=== PATIENT | male | born 1975 | race Caucasian/White ===

== ENCOUNTER 2021-02-16 20:40 | Emergency (ER) | payer OTHER ==
[~2021-02-16 20:40] MED LIST: PREDNISONE20 MG PO; VENTOLIN HFA 66.7 GM INH; VIBRAMYCIN 100100 MG PO
[2021-02-17] MEDS ORDERED: LODINE CAP 300300 MG PO (00:34)
== END 2021-02-17 00:40 | disposition left against medical advice (07) ==
LOC: ER1 20:40
DX: S80.02XA Contusion of left knee, initial encounter (principal); S80.01XA Contusion of right knee, initial encounter; S50.811A Abrasion of right forearm, initial encounter; F10.129 Alcohol abuse with intoxication, unspecified; Y90.8 Blood alcohol level of 240 mg/100 ml or more; F17.210 Nicotine dependence, cigarettes, uncomplicated; W01.0XXA Fall on same level from slipping, tripping and stumbling without subsequent striking against object, initial encounter
CPT/HCPCS: 70450; 71045; 73090; 73564; 93005; 94664; 99284; G0480